=== PATIENT | male | born 1970 | race Caucasian/White ===

== ENCOUNTER 2020-10-02 05:34 | Day surgery (SDC) | payer OTHER ==
[2020-09-30 11:08] VITALS: BMI 35.6
[2020-10-02 11:59] VITALS: TEMP 97.7
[2020-10-02 13:13] VITALS: BP 121/68; PULSE 66
== END 2020-10-02 13:15 | disposition home or self-care (01) ==
LOC: JASU-ENDO 05:34
PROVIDERS: ATTEND Internal Medicine Gastroenterology
PROC: 0DBC8ZX Excision of Ileocecal Valve, Via Natural or Artificial Opening Endoscopic, Diagnostic (ICD-10-PCS; 2020-10-02)
PROC: 0DBN8ZX Excision of Sigmoid Colon, Via Natural or Artificial Opening Endoscopic, Diagnostic (ICD-10-PCS; 2020-10-02)
PROC: 0DBF8ZX Excision of Right Large Intestine, Via Natural or Artificial Opening Endoscopic, Diagnostic (ICD-10-PCS; principal; 2020-10-02 11:00)
DX: Z12.11 Encounter for screening for malignant neoplasm of colon (principal); K51.40 Inflammatory polyps of colon without complications; K57.30 Diverticulosis of large intestine without perforation or abscess without bleeding; D12.0 Benign neoplasm of cecum; D12.4 Benign neoplasm of descending colon; D12.5 Benign neoplasm of sigmoid colon; Z80.0 Family history of malignant neoplasm of digestive organs; K64.8 Other hemorrhoids
CPT/HCPCS: 88305-TC

== ENCOUNTER 2020-10-09 04:17 | Day surgery (SDC) | payer OTHER ==
[2020-10-07 12:43] VITALS: BMI 35.6
[2020-10-09 11:19] VITALS: TEMP 97.3
[2020-10-09 12:12] VITALS: BP 129/79; PULSE 69
[2020-10-09 12:37] LABS: CALCIUM 8.9 mg/dL (8.5-10.1)
[2020-10-09 12:38] LABS: ALBUMIN 3.4 g/dl (3.4-5.0); BLOOD UREA NITROGEN 13.6 mg/dL (7-18)
[2020-10-09 12:41] LABS: CREATININE 0.8 mg/dL (0.55-1.3)
[2020-10-09 12:42] LABS: BILIRUBIN,TOTAL 0.5 mg/dL (0.2-1); TOT PROT 6.3 g/dl (6.4-8.2)
== END 2020-10-09 12:25 | disposition home or self-care (01) ==
LOC: JASU-ENDO 04:17
PROVIDERS: ATTEND Internal Medicine Gastroenterology
PROC: 0DB78ZX Excision of Stomach, Pylorus, Via Natural or Artificial Opening Endoscopic, Diagnostic (ICD-10-PCS; principal; 2020-10-09 11:00)
DX: K29.50 Unspecified chronic gastritis without bleeding (principal); B96.81 Helicobacter pylori [H. pylori] as the cause of diseases classified elsewhere; K21.9 Gastro-esophageal reflux disease without esophagitis; Z87.19 Personal history of other diseases of the digestive system
CPT/HCPCS: 36415; 80053; 88305-TC; 88342-TC

== ENCOUNTER 2020-11-10 12:09 | Inpatient (IN) | payer OTHER ==
[2020-11-10 14:11] LABS: BASO % 0.5 % (0-2.0); EOS % 2.2 % (0-4.5); HEMATOCRIT 42.9 % (35.4-49); HEMOGLOBIN 15.2 GM/dL (11.7-16.9); MCH 29.8 pg (25.7-33.7); MCHC 35.4 g/dl (32.0-35.9); MEAN CELL VOLUME 84.3 fl (80-96); MEAN PLT VOLUME 7.7 fl (7.5-11.1); MONO % 7.5 % (3.8-10.2); NEUT % 71.8 % (42.8-82.8); PLATELET COUNT 261 K/MM3 (134-434); RBC 5.09 M/mm3 (4.00-5.60); RDW 13.7 % (11.9-15.9); WHITE BLOOD COUNT 10.5 K/mm3 (4.0-10.0)
[2020-11-10 14:29] LABS: ALBUMIN 3.8 g/dl (3.4-5.0); BLOOD UREA NITROGEN 13.8 mg/dL (7-18); CALCIUM 8.5 mg/dL (8.5-10.1)
[2020-11-10 14:33] LABS: CREATININE 0.8 mg/dL (0.55-1.3)
[2020-11-10 14:34] LABS: BILIRUBIN,TOTAL 0.9 mg/dL (0.2-1); TOT PROT 7.6 g/dl (6.4-8.2)
[2020-11-10] MEDS ORDERED: ACETAMINOPHEN 1000 MG/100 ML VIAL (NON FORMULARY) IVPB ONE (14:51)
[2020-11-10] MEDS ORDERED: ACETAMINOPHEN INJECTION 100 ML IVPB ONE (15:04)
[2020-11-10] MEDS ORDERED: CEFTRIAXONE 1,000 MG in DEXTROSE 5%-WATER - 50 ML IVPB ONE (15:20)
[2020-11-10 15:32] LABS: URINE APPEARANCE CLEAR; URINE BILIRUBIN NEGATIVE (NEGATIVE); URINE COLOR YELLOW; URINE GLUCOSE (UA) NEGATIVE (NEGATIVE); URINE KETONE NEGATIVE (NEGATIVE)
[2020-11-10 15:33] LABS: EPI CELLS 5.1 /uL (0-25.1); HYALINE CASTS 1.15 /uL (0-3.1); PH,URINE 5.5 (5.0-8.0); URINE BACTERIA 3.8 /uL (0-1359); URINE LEUK ESTERASE N (NEGATIVE); URINE NITRITE NEGATIVE (NEGATIVE); URINE PROTEIN NEGATIVE (NEGATIVE); URINE RBC 9.2 /uL (0-23.9); URINE WBC 2.9 /uL (0-25.8)
[2020-11-10] MEDS ORDERED: morphine CARPU-JECT 4 MG/1 ML DISP.SYRIN IVPUSH ONE (16:16)
[2020-11-10] MEDS ORDERED: MORPHINE SULFATE 2 MG/ML VIAL ONE (16:22)
[2020-11-10] MEDS ORDERED: CEFTRIAXONE 1 GM/50 ML BAG ONE (16:22)
[2020-11-10] MEDS ORDERED: SODIUM CHLORIDE 1,000 ML IV SCH (17:30)
[2020-11-11 02:26] VITALS: BMI 34.6
[2020-11-11] MEDS ORDERED: MORPHINE SULFATE 2 MG/ML VIAL IVPUSH ONE (03:48)
[2020-11-11] MEDS ORDERED: ACETAMINOPHEN 1000 MG/100 ML VIAL (NON FORMULARY) IVPB PRN (03:49)
[2020-11-11 08:28] LABS: BASO % 0.3 % (0-2.0); HEMOGLOBIN 13.8 GM/dL (11.7-16.9); LYMPH % 14.7 % (8-40); MCHC 35.4 g/dl (32.0-35.9); MEAN CELL VOLUME 84.8 fl (80-96); MEAN PLT VOLUME 7.9 fl (7.5-11.1); MONO % 6.5 % (3.8-10.2); NEUT % 76.5 % (42.8-82.8); PLATELET COUNT 210 K/MM3 (134-434); RDW 13.7 % (11.9-15.9)
[2020-11-11 08:49] LABS: ALBUMIN 3.2 g/dl (3.4-5.0); CALCIUM 7.9 mg/dL (8.5-10.1)
[2020-11-11 08:50] LABS: BLOOD UREA NITROGEN 13.3 mg/dL (7-18); MAGNESIUM 2.2 mg/dL (1.8-2.4)
[2020-11-11 08:53] LABS: CREATININE 0.7 mg/dL (0.55-1.3); PHOSPHOROUS 2.8 mg/dL (2.5-4.9)
[2020-11-11 08:54] LABS: BILIRUBIN,TOTAL 0.7 mg/dL (0.2-1); TOT PROT 6.5 g/dl (6.4-8.2)
[2020-11-11] MEDS ORDERED: DEXTROSE 5%-WATER 100 ML IVPB ONE (09:28)
[2020-11-11] MEDS: CEFTRIAXONE 2 GM in DEXTROSE 5%-WATER 2 GM/100 ML BAG IVPB SCH (09:32)
[2020-11-11] MEDS: ENOXAPARIN NA (PORCINE) 40 MG/0.4 ML DISP.SYRIN SQ SCH (09:32)
[2020-11-11] MEDS ORDERED: CEFTRIAXONE 1,000 MG in DEXTROSE 5%-WATER - 50 ML IVPB SCH (10:00)
[2020-11-11] MEDS ORDERED: ACETAMINOPHEN 325 MG TABLET (FP) PO PRN (12:07)
[2020-11-11] MEDS ORDERED: PT OWN MED DRAWER 7, Y5N ONE (12:59)
[2020-11-12 08:29] LABS: BASO % 0.3 % (0-2.0); EOS % 3.5 % (0-4.5); HEMATOCRIT 38.4 % (35.4-49); HEMOGLOBIN 13.7 GM/dL (11.7-16.9); LYMPH % 19.3 % (8-40); MCH 29.9 pg (25.7-33.7); MCHC 35.6 g/dl (32.0-35.9); MEAN CELL VOLUME 84.1 fl (80-96); MEAN PLT VOLUME 7.7 fl (7.5-11.1); MONO % 7.1 % (3.8-10.2); NEUT % 69.8 % (42.8-82.8); PLATELET COUNT 229 K/MM3 (134-434); RBC 4.57 M/mm3 (4.00-5.60); RDW 13.4 % (11.9-15.9); WHITE BLOOD COUNT 8.3 K/mm3 (4.0-10.0)
[2020-11-12 09:29] LABS: CALCIUM 8.3 mg/dL (8.5-10.1)
[2020-11-12 09:30] LABS: ALBUMIN 3.3 g/dl (3.4-5.0); BLOOD UREA NITROGEN 9.2 mg/dL (7-18); MAGNESIUM 2.3 mg/dL (1.8-2.4)
[2020-11-12 09:33] LABS: CREATININE 0.7 mg/dL (0.55-1.3); PHOSPHOROUS 3.3 mg/dL (2.5-4.9)
[2020-11-12 09:35] LABS: BILIRUBIN,TOTAL 0.6 mg/dL (0.2-1); TOT PROT 6.4 g/dl (6.4-8.2)
[2020-11-12] MEDS ORDERED: DEXTROSE 5%-WATER 100 ML IVPB ONE (09:56)
[2020-11-12] MEDS: ENOXAPARIN NA (PORCINE) 40 MG/0.4 ML DISP.SYRIN SQ SCH (09:58)
[2020-11-12] MEDS: CEFTRIAXONE 2 GM in DEXTROSE 5%-WATER 2 GM/100 ML BAG IVPB SCH (09:58)
[2020-11-13 08:43] LABS: BASO % 0.6 % (0-2.0); EOS % 4.1 % (0-4.5); HEMOGLOBIN 13.4 GM/dL (11.7-16.9); LYMPH % 20.4 % (8-40); MCH 29.8 pg (25.7-33.7); MCHC 35.3 g/dl (32.0-35.9); MEAN CELL VOLUME 84.2 fl (80-96); MONO % 7.6 % (3.8-10.2); NEUT % 67.3 % (42.8-82.8); PLATELET COUNT 225 K/MM3 (134-434); RBC 4.51 M/mm3 (4.00-5.60); RDW 13.3 % (11.9-15.9); WHITE BLOOD COUNT 7.3 K/mm3 (4.0-10.0)
[2020-11-13 08:51] LABS: ALBUMIN 3.2 g/dl (3.4-5.0)
[2020-11-13 08:53] LABS: BLOOD UREA NITROGEN 10.2 mg/dL (7-18); MAGNESIUM 2.4 mg/dL (1.8-2.4)
[2020-11-13 08:55] LABS: BILIRUBIN,TOTAL 0.5 mg/dL (0.2-1)
[2020-11-13 08:56] LABS: CREATININE 0.8 mg/dL (0.55-1.3); PHOSPHOROUS 3.7 mg/dL (2.5-4.9); TOT PROT 6.4 g/dl (6.4-8.2)
[2020-11-13] MEDS ORDERED: DEXTROSE 5%-WATER 100 ML IVPB ONE (09:06)
[2020-11-13] MEDS: ENOXAPARIN NA (PORCINE) 40 MG/0.4 ML DISP.SYRIN SQ SCH ×2 (09:15→09:17)
[2020-11-13] MEDS: CEFTRIAXONE 2 GM in DEXTROSE 5%-WATER 2 GM/100 ML BAG IVPB SCH (09:15)
[2020-11-13 14:14] VITALS: BP 126/72; PULSE 67; TEMP 98.7
== END 2020-11-13 18:33 | disposition home or self-care (01) | DRG 244 ==
LOC: JER 12:09 → JERBED 14:15 → J6S 11-11 01:40
PROVIDERS: ATTEND Internal Medicine
DX: K57.32 Diverticulitis of large intestine without perforation or abscess without bleeding (principal); K21.9 Gastro-esophageal reflux disease without esophagitis; D72.829 Elevated white blood cell count, unspecified; R00.0 Tachycardia, unspecified; K64.8 Other hemorrhoids; K57.90 Diverticulosis of intestine, part unspecified, without perforation or abscess without bleeding; E66.9 Obesity, unspecified; Z68.34 Body mass index [BMI] 34.0-34.9, adult
CPT/HCPCS: 36415; 80053; 81003; 83735; 84100; 85025; 86140; 87040; 93005; 93010; 99285-25; C9803; J0131; U0003; U0005